=== PATIENT | female | born 1945 | race African-American/Black ===

== ENCOUNTER 2017-11-19 11:12 | Outpatient (CLI) | payer MEDICARE | END 2017-11-19 11:13 | disposition home or self-care (01) | LOC: BICMAMMO 11:12 | PROVIDERS: ATTEND Family Medicine | DX: Z12.31 Encounter for screening mammogram for malignant neoplasm of breast (principal); Z85.3 Personal history of malignant neoplasm of breast | CPT/HCPCS: 77063; 77067 ==

== ENCOUNTER 2021-04-07 17:31 | Observation (INO) | payer OTHER, MEDICARE ==
[2021-04-07 18:16] LABS: #Eosinphils 0.2 thou/uL (0.0-0.7); #Lymphocytes 0.9 thou/uL (1.20-3.40); #Monocytes 0.5 thou/uL (0.11-0.59); #Neutrophils 4.1 thou/uL (1.40-6.50); %Basophils 0.7 % (0.0-1.0); %Eosinophils 3.8 % (0.0-10.0); %Lymphocytes 16.3 % (21.0-51.0); %Monocytes 8.2 % (0.0-10.0); Hemoglobin 10.9 g/dL (12.0-16.0); Mean Corpuscular Hemoglobin 33.9 pg (27.0-31.0); Mean Corpuscular Volume 99.5 fL (78.0-98.0); Mean Platelet Volume 6.7 fL (7.4-10.4); Platelet Count 280 thou/uL (130-400); RBC Distribution Width 12.7 % (11.5-14.5); Red Blood Cell (RBC) Count 3.22 mill/uL (4.20-5.40); White Blood Cell (WBC) Count 5.7 thou/uL (4.8-10.8)
[2021-04-07 18:36] LABS: ALT (SGPT) 13 U/L (8-55); AST (SGOT) 25 U/L (5-34); Alkaline Phosphatase 76 U/L (40-110); Anion Gap 17 mmol/L (10-20); BUN (Urea Nitrogen) 24 mg/dL (9.8-20.1); Bilirubin, Total 0.2 mg/dL (0.2-1.2); Calc. Creatinine Clearance 0 mL/min (70-130); Calcium 9.5 mg/dL (7.8-10.44); Carbon Dioxide 15 mmol/L (23-31); Chloride 102 mmol/L (98-107); Globulin 2.8 g/dL (2.4-3.5); Glucose 93 mg/dL (83-110); Potassium 4.7 mmol/L (3.5-5.1); Protein, Total 6.8 g/dL (5.8-8.1); Prothrombin Time 13.1 sec (12.0-14.7); Sodium 129 mmol/L (136-145)
[2021-04-07 18:56] LABS: Bilirubin Negative (Negative); Blood, Urine Negative (Negative); Clarity Clear (Clear); Glucose, Urine (Dipstick) Normal (Negative); Ketone, Urine Negative (Negative); Leukocyte Negative Leu/uL (Negative); Nitrite Negative (Negative); Protein, Urine (Dipstick) Negative (Neg-Trace); Specific Gravity, Urine 1.012 (1.002-1.036); Urobilinogen Normal mg/dL (Less than 2); pH, Urine 5.5 (5.0-9.0)
[2021-04-07] MEDS ORDERED: Fentanyl 100 MCG/2 ML VIAL ONE (19:21)
[2021-04-07] MEDS ORDERED: Boostrix 0.5 ML (Tdap) VIAL ONE (19:31)
[2021-04-08] MEDS ORDERED: Ondansetron PF 4 MG/2 ML Vial IVP PRN ×2 (00:15→08:54)
[2021-04-08] MEDS ORDERED: Acetaminophen 325 MG TAB PO PRN ×2 (00:15→01:07)
[2021-04-08] MEDS ORDERED: Ondansetron ODT 4 MG TAB SL PRN ×2 (00:15→08:54)
[2021-04-08 00:51] VITALS: BMI 19.8
[2021-04-08] MEDS ORDERED: Morphine 4 MG/ML VIAL SLOW IVP PRN (00:55)
[2021-04-08 05:57] LABS: #Eosinphils 0.1 thou/uL (0.0-0.7); #Lymphocytes 1.2 thou/uL (1.20-3.40); #Monocytes 0.5 thou/uL (0.11-0.59); #Neutrophils 5.3 thou/uL (1.40-6.50); %Basophils 0.3 % (0.0-1.0); %Eosinophils 1.6 % (0.0-10.0); %Lymphocytes 16.4 % (21.0-51.0); %Monocytes 6.8 % (0.0-10.0); %Neutrophils 74.9 % (42.0-75.0); Mean Corpuscular HGB CONC 33.8 g/dL (32.0-36.0); Mean Corpuscular Hemoglobin 33.4 pg (27.0-31.0); Mean Corpuscular Volume 98.9 fL (78.0-98.0); Mean Platelet Volume 6.9 fL (7.4-10.4); Platelet Count 267 thou/uL (130-400); RBC Distribution Width 12.6 % (11.5-14.5); Red Blood Cell (RBC) Count 2.99 mill/uL (4.20-5.40); White Blood Cell (WBC) Count 7.1 thou/uL (4.8-10.8)
[2021-04-08] MEDS: Dexamethasone 4 mg/ml Vial SLOW IVP SCH ×3 (06:16→21:37)
[2021-04-08 06:17] LABS: Anion Gap 10 mmol/L (10-20); BUN (Urea Nitrogen) 17 mg/dL (9.8-20.1); Calc. Creatinine Clearance 45 mL/min (70-130); Calcium 9.7 mg/dL (7.8-10.44); Carbon Dioxide 23 mmol/L (23-31); Chloride 107 mmol/L (98-107); Glucose 113 mg/dL (83-110); Potassium 4.7 mmol/L (3.5-5.1); Sodium 135 mmol/L (136-145)
[2021-04-08] MEDS ORDERED: Benzonatate 100 MG CAP PO PRN (06:35)
[2021-04-08] MEDS ORDERED: Artificial Tear Sol 15 ML BOT EA EYE PRN (06:35)
[2021-04-08] MEDS ORDERED: Loratadine 10 MG TAB PO PRN (06:35)
[2021-04-08] MEDS ORDERED: Bisacodyl 5 MG TAB PO PRN (06:35)
[2021-04-08] MEDS ORDERED: Sodium Chloride 0.65% Nasal 44 ML BOT EA NARE PRN (06:35)
[2021-04-08] MEDS ORDERED: Loperamide HCl 2 MG CAP PO PRN (06:35)
[2021-04-08] MEDS ORDERED: Cepastat Lozenges 1 LOZ PO PRN (06:35)
[2021-04-08] MEDS ORDERED: Senokot S 8.6-50 MG TAB PO PRN (06:35)
[2021-04-08] MEDS ORDERED: Calcium Carbonate 500 MG ChewTAB PO PRN (06:35)
[2021-04-08] MEDS ORDERED: Hydrocerin (Eucerin) Cream 120 gm Jar TOP PRN (06:35)
[2021-04-08] MEDS ORDERED: hydrALAZINE 20 MG/ML VIAL SLOW IVP PRN (06:35)
[2021-04-08] MEDS ORDERED: GUAIFENESIN SF SOLN 200 MG/10 ML UDCUP PO PRN (06:35)
[2021-04-08] MEDS: Pregabalin 75 MG CAP PO SCH ×2 (08:46→21:36)
[2021-04-08] MEDS: Cyanocobalamin (Vitamin B-12) 1,000 MCG TAB PO SCH (08:48)
[2021-04-08] MEDS: Folic Acid 1 MG TAB PO SCH (08:48)
[2021-04-08] MEDS: Famotidine 20 MG TAB PO SCH (08:48)
[2021-04-08] MEDS: Cholecalciferol 1,000 UNITS (25 MCG) TAB PO SCH (08:48)
[2021-04-08] MEDS ORDERED: Gabapentin 100 MG CAP PO SCH (09:00)
[2021-04-09] MEDS: Dexamethasone 4 mg/ml Vial SLOW IVP SCH ×2 (05:56→14:28)
[2021-04-09] MEDS: Famotidine 20 MG TAB PO SCH (09:06)
[2021-04-09] MEDS: Folic Acid 1 MG TAB PO SCH (09:06)
[2021-04-09] MEDS: Cholecalciferol 1,000 UNITS (25 MCG) TAB PO SCH (09:06)
[2021-04-09] MEDS: Cyanocobalamin (Vitamin B-12) 1,000 MCG TAB PO SCH (09:06)
[2021-04-09] MEDS: Pregabalin 75 MG CAP PO SCH (09:06)
[2021-04-09 12:14] VITALS: BP 130/69; TEMP 98.4
[2021-04-09 15:01] LABS: SARS-CoV-2 PCR NAA for Saliva Not Detected (NotDetected)
== END 2021-04-09 17:00 | disposition home health service (06) ==
LOC: ERS 17:31 → 2SW 20:58
PROVIDERS: ADMIT Student in an Organized Health Care Education/Training Program; ATTEND Internal Medicine
DX: S09.93XA Unspecified injury of face, initial encounter (principal); T14.8XXA Other injury of unspecified body region, initial encounter; S02.2XXA Fracture of nasal bones, initial encounter for closed fracture; N17.9 Acute kidney failure, unspecified; E87.1 Hypo-osmolality and hyponatremia; K11.8 Other diseases of salivary glands; D50.9 Iron deficiency anemia, unspecified; E78.5 Hyperlipidemia, unspecified; E78.00 Pure hypercholesterolemia, unspecified; I10 Essential (primary) hypertension; R29.6 Repeated falls; F17.210 Nicotine dependence, cigarettes, uncomplicated; M11.231 Other chondrocalcinosis, right wrist; M11.232 Other chondrocalcinosis, left wrist; M43.13 Spondylolisthesis, cervicothoracic region; M47.812 Spondylosis without myelopathy or radiculopathy, cervical region; M47.813 Spondylosis without myelopathy or radiculopathy, cervicothoracic region; M48.02 Spinal stenosis, cervical region; M48.03 Spinal stenosis, cervicothoracic region; G89.29 Other chronic pain; M54.9 Dorsalgia, unspecified; I07.1 Rheumatic tricuspid insufficiency; Z79.02 Long term (current) use of antithrombotics/antiplatelets; Z79.899 Other long term (current) drug therapy; Z88.5 Allergy status to narcotic agent; Z20.822 Contact with and (suspected) exposure to COVID-19; W01.190A Fall on same level from slipping, tripping and stumbling with subsequent striking against furniture, initial encounter
CPT/HCPCS: 12011; 51701; 70450; 70486; 71045; 72125; 72141; 73120 ×2; 80048; 80053; 81003; 84484; 85025 ×2; 85610; 86850; 86900; 86901; 90471; 90715; 93005; 93306; 96374 ×2; 96375; 96376; 97110; 97116; 97139 ×3; 99285; U0003; U0005; 36415; G0378; J1100; J2270; J3010